=== PATIENT | female | born 1990 ===

== ENCOUNTER 2017-01-23 07:03 | Inpatient (IN) | payer MEDICAID ==
[2017-01-23] MEDS ORDERED: Sodium Chloride 0.9% 10 ML Syringe FLUSH PRN (07:15)
[2017-01-23] MEDS ORDERED: Acetaminophen 325 MG Tab PO PRN ×2 (07:15→17:42)
[2017-01-23] MEDS ORDERED: Nalbuphine 20 MG/1 ML Amp IVPUSH PRN (07:18)
[2017-01-23] MEDS ORDERED: Misoprostol 25 MCG (1/4 of 100 MCG) Tab ONE (07:21)
[2017-01-23] MEDS: Misoprostol 25 MCG (1/4 of 100 MCG) Tab VAG SCH ×3 (07:25→17:07)
--- NOTE | 2017-01-23 07:30 | PCM.LDHP ---
L&D History of Present Illness - General Date of Service: 01/23/17 Admit Problem/Dx: Admission Diagnosis/Problem Admission Diagnosis/Problem Source of Information: Patient History Limitations: Reports: No Limitations - History of Present Illness Introduction:: 26-year-old 002 [address] 01/21/17 at estimated gestational age of 40 weeks and 2 days admitted for induction. GBS negative. Patient is Rh-. 2 previous deliveries estimated weight 7 lbs. 15 oz. Blood type A negative antibody screen negative patient did receive RhoGAM at 28 weeks. Initial hemoglobin and hematocrit 13.2/40.1 platelets 252,000 Pap smear -07/14/16. Rubella titer indicates immunity, VDRL nonreactive, urine culture no growth after 2 days. Hepatitis B surface antigen and HIV negative. Chlamydia and GC negative on . On 10/30/16 hemoglobin hematocrit 12.1/35.9 platelets 222,000 antibody screen negative RhoGam given on 10/30/16. Strep negative on 12/22/16. Patient admitted for induction of labor. Cytotec 25 g placed at the cervical os at 0725 hrs. Improves with: Reports: None Worsens with: Reports: None Associated Symptoms: Reports: N - Related Data Allergies/Adverse Reactions: Allergies Allergy/AdvReac Type Severity Reaction Status Date / Time Penicillins Allergy Severe Hives Verified 01/23/17 07:28 Home Medications: Home Meds Vits #93/Iron Fum/FA [ Formula Tablet] 01/23/17 [History] Past Medical History - Past Health History Medical/Surgical History: Denies Medical/Surgical History : 3 Para: 2 (2001) Other OB/BYN History: ovarian cysts Psychiatric History: Reports: Depression - Past Surgical History HEENT Surgical History: Reports: Oral Surgery Social & Family History - Family History Family Medical History: Noncontributory - Tobacco Use Smoking Status *Q: Current Every Day Smoker (4 yrs of 1/2 ppd. pt counseled on need to quit for both her own health and that of her children) Years of Tobacco use: 3 Packs/Tins Daily: 0.5 Used Tobacco, but Quit: No Second Hand Smoke Exposure: Yes - Alcohol Use Days Per Week of Alcohol Use: 0 - Recreational Drug Use Recreational Drug Use: No H&P Review of Systems - Review of Systems: Review Of Systems: See Below General: Reports: No Symptoms HEENT: Reports: No Symptoms Pulmonary: Reports: No Symptoms Cardiovascular: Reports: No Symptoms Gastrointestinal: Reports: No Symptoms Genitourinary: Reports: No Symptoms Musculoskeletal: Reports: No Symptoms Skin: Reports: No Symptoms Psychiatric: Reports: No Symptoms Neurological: Reports: No Symptoms Hematologic/Lymphatic: Reports: No Symptoms Immunologic: Reports: No Symptoms L&D Exam - Exam Exam: See Below - Vital Signs Vital Signs: BP 115/67 Pulse 85 - OB Specific Fundal Height In cm: 39 Movement: Active Heart Tones: Present Heart Tones per Min: 135 Heart Rate (FHR) Variability: Moderate (6-25 bmp) Presentation: Vertex - Crockett Score Crockett Score Cervix Position: Posterior Crockett Score Consistency: Soft Crockett Score Effacement: 31-50% Crockett Score Dilation: 1-2 cm Crockett Score Infant's Station: -3 Crockett Score Total: 4 - Exam General: Alert, Oriented HEENT: Conjunctiva Clear, Mucosa Moist & Encampment, PERRLA Neck: Supple, Trachea Midline Lungs: Clear to Auscultation, Normal Respiratory Effort Cardiovascular: Regular Rate, Regular Rhythm GI/Abdominal Exam: Normal Bowel Sounds, Soft, Non-Tender, No Organomegaly, No Distention, No Abnormal Bruit, No Mass, Pelvis Stable Genitourinary: Normal external exam, Normal bimanual exam, Normal speculum exam Extremities: Normal Inspection, Normal Range of Motion, Non-Tender, No Pedal Edema, Normal Capillary Refill Skin: Warm, Dry, Intact Neurological: Reflexes Equal Bilateral Psychiatric: Alert, Normal Affect, Normal Mood - Patient Data Result Diagrams: 01/23/17 07:30 - Problem List (1) 40 weeks gestation of SNOMED Code(s): 14147191 ICD Code: Z3A.40 - 40 WEEKS GESTATION OF Status: Acute Current Visit: Yes (2) Rh negative status during in third trimester, antepartum SNOMED Code(s): 480016197 ICD Code: O09.893 - SUPERVISION OF OTHER HIGH RISK PREGNANCIES, THIRD TRIMESTER Status: Acute Current Visit: Yes Problem List Initiated/Reviewed/Updated: No Orders Last 24hrs: Active Orders 24 hr Category Date Time Status Communication Order [RC] ASDIRECTED Care 01/23/17 07:15 Ordered Communication Order [RC] ASDIRECTED Care 01/23/17 07:15 Ordered Communication Order [RC] ASDIRECTED Care 01/23/17 07:15 Ordered Monitoring [RC] INTERMITTENT Care 01/23/17 07:15 Ordered Notify Provider [RC] ASDIRECTED Care 01/23/17 07:15 Ordered Peripheral IV Care [RC] . DIRECTED Care 01/23/17 07:15 Ordered Vaginal Exam [RC] ASDIRECTED Care 01/23/17 07:15 Ordered Vital Signs [RC] ASDIRECTED Care 01/23/17 07:15 Ordered Clear Liquid Diet [DIET] Diet 01/23/17 Breakfast Ordered CBC WITH AUTO DIFF [HEME] Stat Lab 01/23/17 07:18 Ordered TYPE AND SCREEN [BBK] Stat Lab 01/23/17 07:19 Ordered Acetaminophen [Tylenol] Med 01/23/17 07:15 Ordered 650 mg PO Q4H PRN Lactated Ringers [Ringers, Lactated] 1,000 ml Med 01/23/17 07:15 Ordered IV ASDIRECTED Misoprostol [Cytotec] Med 01/23/17 07:15 Ordered 25 mcg VAG Q3H Nalbuphine [Nubain] Med 01/23/17 07:18 Ordered 10 mg IVPUSH Q3H PRN Oxytocin [Pitocin] 20 unit Med 01/23/17 07:30 Ordered Lactated Ringers [Ringers, Lactated] 1,000 ml IV TITRATE Sodium Chloride 0.9% [Saline Flush] Med 01/23/17 07:15 Ordered 10 ml FLUSH ASDIRECTED PRN Medication Administration Instruction [OM.PC] Oth 01/23/17 07:30 Ordered ASDIRECTED Peripheral IV Insertion Adult [OM.PC] Routine Oth 01/23/17 07:15 Ordered Medication Orders Acetaminophen (Tylenol) 650 mg PO Q4H PRN PRN Reason: Fever greater than 100.4 Lactated Ringer's (Ringers, Lactated) 1,000 mls @ 40 mls/hr IV ASDIRECTED MALINDA Oxytocin 20 unit/ Lactated (Ringer's) 1,002 mls @ 6.01 mls/hr IV TITRATE MALINDA; 2 MUNITS/MIN PRN Reason: Protocol Misoprostol (Cytotec) 25 mcg VAG Q3H MALINDA Stop: 01/23/17 13:16 Nalbuphine HCl (Nubain) 10 mg IVPUSH Q3H PRN PRN Reason: Pain Sodium Chloride (Saline Flush) 10 ml FLUSH ASDIRECTED PRN PRN Reason: Keep Vein Open Assessment/Plan Comment:: Admit for induction
[2017-01-23] MEDS ORDERED: Bupivacaine 0.25% 10 ML SDV ONE ×2 (09:00→22:22)
[2017-01-23] MEDS: Lactated Ringers 1,000 ML IV SCH ×3 (09:45→12:47)
--- NOTE | 2017-01-23 09:53 | PCM.SN ---
- Free Text/Narrative Note: Cervix is 2 cm dilated 50% effaced soft mid position Vertex -1 amniotomy performed clear fluid patient had had some decelerations appeared be early in nature consistent with the head engaging into the pelvis. No cord palpable before or after amniotomy.
[2017-01-23] MEDS ORDERED: fentaNYL 100 MCG/2 ML SDV EPIDUR PRN (11:03)
[2017-01-23] MEDS ORDERED: diphenhydrAMINE 50 MG/ML SDV IVPUSH PRN (11:03)
[2017-01-23] MEDS ORDERED: ePHEDrine 50 MG/ML SDV IVPUSH PRN (11:03)
[2017-01-23] MEDS ORDERED: Bupivacaine/fentaNYL/NS 100 ML Bag EPIDUR SCH (11:15)
--- NOTE | 2017-01-23 11:31 | PCM.PREANE ---
Preanesthetic Assessment - Anesthesia/Transfusion/Family Hx Anesthesia History: Prior Anesthesia Without Reaction Family History of Anesthesia Reaction: No Transfusion History: No Prior Transfusion(s) - Review of Systems General: No Symptoms Pulmonary: No Symptoms Cardiovascular: No Symptoms Gastrointestinal: No Symptoms Neurological: No Symptoms Other: Reports: None - Physical Assessment O2 Sat by Pulse Oximetry: 99 Respiratory Rate: 16 Vital Signs: Last Vital Signs Temp 36.4 C 01/23/17 07:15 Pulse 97 01/23/17 07:15 Resp 16 01/23/17 07:15 BP 115/67 01/23/17 07:15 Pulse Ox 99 01/23/17 07:15 Height: 1.78 m Weight: 103.873 kg ASA Class: 2 Mental Status: Alert & Oriented x3 Airway Class: Mallampati = 1 Dentition: Reports: Normal Dentition Thyro-Mental Finger Breadths: 3 Mouth Opening Finger Breadths: 3 ROM/Head Extension: Full Lungs: Clear to Auscultation, Normal Respiratory Effort Cardiovascular: Regular Rate, Regular Rhythm, No Murmurs - Lab Values: Laboratory Last Values WBC 9.79 K/mm3 (3.98-10.04) 01/23/17 07:30 RBC 3.97 M/mm3 (3.98-5.22) L 01/23/17 07:30 Hgb 11.9 gm/L (11.2-15.7) 01/23/17 07:30 Hct 36.4 % (34.1-44.9) 01/23/17 07:30 MCV 91.7 fl (79.4-94.8) 01/23/17 07:30 MCH 30.0 pg (25.6-32.2) 01/23/17 07:30 MCHC 32.7 g/dl (32.2-35.5) 01/23/17 07:30 RDW Std Deviation 47.1 fL (36.4-46.3) H 01/23/17 07:30 Plt Count 226 K/mm3 (182-369) 01/23/17 07:30 MPV 10.8 fl (9.4-12.3) 01/23/17 07:30 Neut % (Auto) 69.5 % (34.0-71.1) 01/23/17 07:30 Lymph % (Auto) 20.9 % (19.3-51.7) 01/23/17 07:30 Terry % (Auto) 7.8 % (4.7-12.5) 01/23/17 07:30 Eos % (Auto) 1.6 (0.7-5.8) 01/23/17 07:30 Baso % (Auto) 0.1 % (0.1-1.2) 01/23/17 07:30 Neut # (Auto) 6.80 K/mm3 (1.56-6.13) H 01/23/17 07:30 Lymph # (Auto) 2.05 K/mm3 (1.18-3.74) 01/23/17 07:30 Terry # (Auto) 0.76 K/mm3 (0.24-0.36) H 01/23/17 07:30 Eos # (Auto) 0.16 K/mm3 (0.04-0.36) 01/23/17 07:30 Baso # (Auto) 0.01 K/mm3 (0.01-0.08) 01/23/17 07:30 Blood Type A NEGATIVE 01/23/17 07:30 Gel Antibody Screen Positive 01/23/17 07:30 - Allergies Allergies/Adverse Reactions: Allergies Allergy/AdvReac Type Severity Reaction Status Date / Time Penicillins Allergy Severe Hives Verified 01/23/17 07:28 - Anesthesia Plan Pre-Op Medication Ordered: None - Acknowledgements Anesthesia Type Planned: Epidural Pt an Appropriate Candidate for the Planned Anesthesia: Yes Alternatives and Risks of Anesthesia Discussed w Pt/Guardian: Yes Pt/Guardian Understands and Agrees with Anesthesia Plan: Yes PreAnesthesia Questionnaire - Past Health History Medical/Surgical History: Denies Medical/Surgical History Gastrointestinal History: Reports: GERD [employer]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 pt counseled on need to quit for both her own health and that of her children) Tobacco Use Within Last Twelve Months: Cigarettes Second Hand Smoke Exposure: Yes Days Per Week of Alcohol Use: 0 Recreational Drug Use History: No - HOME MEDS Home Medications: Home Meds Vits #93/Iron Fum/FA [ Formula Tablet] 01/23/17 [History] - CURRENT (IN HOUSE) MEDS Current Meds: Current Medications Acetaminophen (Tylenol) 650 mg PO Q4H PRN PRN Reason: Fever greater than 100.4 Diphenhydramine HCl (Benadryl) 25 mg IVPUSH Q6H PRN PRN Reason: Itching Ephedrine Sulfate (Ephedrine Sulfate) 5 mg IVPUSH ASDIRECTED PRN PRN Reason: HYPOTENTSION Fentanyl (Sublimaze) 100 mcg EPIDUR Q3H PRN PRN Reason: PAIN Last Admin: 01/23/17 11:25 Dose: 100 mcg Fentanyl/Bupivacaine HCl (Fentanyl/Bupivacaine/Ns 2 Mcg-0.125% 100 Ml) 100 ml EPIDUR ASDIRECTED MALINDA Lactated Ringer's (Ringers, Lactated) 1,000 mls @ 40 mls/hr IV ASDIRECTED MALINDA Last Admin: 01/23/17 11:15 Dose: 40 mls/hr Oxytocin 20 unit/ Lactated (Ringer's) 1,002 mls @ 6.01 mls/hr IV TITRATE MALINDA; 2 MUNITS/MIN PRN Reason: Protocol Misoprostol (Cytotec) 25 mcg VAG Q3H MALINDA Stop: 01/23/17 13:16 Last Admin: 01/23/17 11:16 Dose: Not Given Nalbuphine HCl (Nubain) 10 mg IVPUSH Q3H PRN PRN Reason: Pain Sodium Chloride (Saline Flush) 10 ml FLUSH ASDIRECTED PRN PRN Reason: Keep Vein Open Discontinued Medications Misoprostol (Cytotec) Confirm Administered Dose 25 mcg .ROUTE .STK-MED ONE Stop: 01/23/17 07:22 Last Admin: 01/23/17 07:36 Dose: Not Given
--- NOTE | 2017-01-23 14:07 | PCM.SN ---
- Free Text/Narrative Note: Cervix is 4 cm dilated the head was minus onetime amniotomy now -2 to -3 still mid position soft no cord is palpated uterine activity catheter and heart tone electrode placed patient. Now meconium-stained amnionic fluid as opposed to clear fluid at time of rupture. Having contractions every 2 minutes. Trying to determine if adequate enough for cervical dilatation or if augmentation needs to be performed.
--- NOTE | 2017-01-23 14:23 | PCM.SN ---
- Free Text/Narrative Note: Discussed findings with patient and will obtain consent for K Seim is needed at present time will proceed with attempted vaginal delivery. Patient had last delivery did have meconium-stained amnionic fluid and lymph cord.
--- NOTE | 2017-01-23 15:19 | PCM.SN ---
- Free Text/Narrative Note: Cervix is now 5 cm dilated, 70% effaced, mid position, soft, vertex (suspect OP) , meconium staining persist, -2 station. heart tones category 1 with early decelerations consistent with head compression. Contractions every 2-3 minutes and MVUs 200s. Adequate contractions with spontaneous labor no indication for oxytocin.
[2017-01-23] MEDS ORDERED: Oxytocin/Lactated Ringers 20 UNIT/1,000 ML BAG IV ONE (16:01)
[2017-01-23] MEDS ORDERED: Lidocaine 1% 50 ML MDV ONE (16:53)
[2017-01-23] MEDS ORDERED: Lidocaine 1% 10 ML MDV INJECT ONE (17:07)
--- NOTE | 2017-01-23 17:09 | PCM.DEL ---
L & D Note - General Info Date of Service: 01/23/17 Mother's Due Date: 01/21/17 - Delivery Note Labor: Augmented by ARM Cervical Ripening Method: Misoprostil Delivery Outcome: Livebirth (Female liveborn 1651 hrs. Thursday01/23/17 SAMI Apgars 8/9 nuchal cord times one meconium-stained amnionic fluid weight 30/1/80 grams/7 pounds 0.2 ounces) Delivery Method: Spontaneous Vaginal Delivery-Single Infant Delivery Mode: Spontaneous Presentation: Left Occiput Anterior (SAMI) Nuchal Cord: Present Prep: Povidone-Iodine (Betadine Anesthesia Type: Epidural Anesthetic: Lidocaine (Xylocaine) 1% Plain (4 mL) Local Anesthetic Volume: 4cc Amniotic Fluid Description: Meconium Stained Episiotomy Type: None Laceration: 1st Degree (Midline) Suture type: Other (Monocryl) Suture size: 3-0 Placenta: Intact, Spontaneous (1652 hrs. intact central cord insertion) Cord: 3 Vessels Estimated Blood Loss: 250 Resuscitation Needed: No : Suctioned, Bulb Syringe, Stimulated, Warmed, [place] Used, Warmer Used Provider: Alejandro Mena Score 1 min: 8 Score 5 min: 9 - Patient Data Vitals - Most Recent: Last Vital Signs Temp 97.6 F 01/23/17 07:15 Pulse 97 01/23/17 07:15 Resp 16 01/23/17 11:31 BP 115/67 01/23/17 07:15 Pulse Ox 99 01/23/17 11:31 Weight - Most Recent: 229 lb I&O - Last 24 Hours: Intake & Output 01/23/17 01/23/17 01/23/17 06:59 14:59 22:59 Intake Total 1999 Balance 1999 Lab Results Last 24 Hours: Laboratory Results - last 24 hr 01/23/17 01/23/17 Range/Units 07:30 07:30 WBC 9.79 (3.98-10.04) K/mm3 RBC 3.97 L (3.98-5.22) M/mm3 Hgb 11.9 (11.2-15.7) gm/L Hct 36.4 (34.1-44.9) % MCV 91.7 (79.4-94.8) fl MCH 30.0 (25.6-32.2) pg MCHC 32.7 (32.2-35.5) g/dl RDW Std Deviation 47.1 H (36.4-46.3) fL Plt Count 226 (182-369) K/mm3 MPV 10.8 (9.4-12.3) fl Neut % (Auto) 69.5 (34.0-71.1) % Lymph % (Auto) 20.9 (19.3-51.7) % [place] % (Auto) 7.8 (4.7-12.5) % Eos % (Auto) 1.6 (0.7-5.8) Baso % (Auto) 0.1 (0.1-1.2) % Neut # (Auto) 6.80 H (1.56-6.13) K/mm3 Lymph # (Auto) 2.05 (1.18-3.74) K/mm3 [place] # (Auto) 0.76 H (0.24-0.36) K/mm3 Eos # (Auto) 0.16 (0.04-0.36) K/mm3 Baso # (Auto) 0.01 (0.01-0.08) K/mm3 Blood Type A NEGATIVE Gel Antibody Screen Positive Med Orders - Current: Current Medications Acetaminophen (Tylenol) 650 mg PO Q4H PRN PRN Reason: Fever greater than 100.4 Diphenhydramine HCl (Benadryl) 25 mg IVPUSH Q6H PRN PRN Reason: Itching Ephedrine Sulfate (Ephedrine Sulfate) 5 mg IVPUSH ASDIRECTED PRN PRN Reason: HYPOTENTSION Fentanyl (Sublimaze) 100 mcg EPIDUR Q3H PRN PRN Reason: PAIN Last Admin: 01/23/17 11:25 Dose: 100 mcg Fentanyl/Bupivacaine HCl (Fentanyl/Bupivacaine/Ns 2 Mcg-0.125% 100 Ml) 100 ml EPIDUR ASDIRECTED MALINDA Lactated Ringer's (Ringers, Lactated) 1,000 mls @ 40 mls/hr IV ASDIRECTED MALINDA Last Admin: 01/23/17 12:47 Dose: 40 mls/hr Oxytocin 20 unit/ Lactated (Ringer's) 1,002 mls @ 6.01 mls/hr IV TITRATE MALINDA; 2 MUNITS/MIN PRN Reason: Protocol Nalbuphine HCl (Nubain) 10 mg IVPUSH Q3H PRN PRN Reason: Pain Sodium Chloride (Saline Flush) 10 ml FLUSH ASDIRECTED PRN PRN Reason: Keep Vein Open Discontinued Medications Oxytocin/Lactated Ringer's (Pitocin In Lr 20 Units/1,000 Ml) Confirm Administered Dose 20 unit in 1,000 mls @ as directed IV .STK-MED ONE Stop: 01/23/17 16:02 Lidocaine HCl (Xylocaine 1%) Confirm Administered Dose 50 ml .ROUTE .STK-MED ONE Stop: 01/23/17 16:54 Misoprostol (Cytotec) 25 mcg VAG Q3H MALINDA Stop: 01/23/17 13:16 Last Admin: 01/23/17 11:16 Dose: Not Given Misoprostol (Cytotec) Confirm Administered Dose 25 mcg .ROUTE .STK-MED ONE Stop: 01/23/17 07:22 Last Admin: 01/23/17 07:36 Dose: Not Given - Problem List & Annotations (1) 40 weeks gestation of SNOMED Code(s): 55272967 Code(s): Z3A.40 - 40 WEEKS GESTATION OF Status: Acute Current Visit: Yes (2) Rh negative status during in third trimester, antepartum SNOMED Code(s): 289631568 Code(s): O09.893 - SUPERVISION OF OTHER HIGH RISK PREGNANCIES, THIRD TRIMESTER Status: Acute Current Visit: Yes (3) First degree perineal laceration, delivered, current hospitalization SNOMED Code(s): 145059762 Code(s): O70.0 - FIRST DEGREE PERINEAL LACERATION DURING DELIVERY Status: Acute Current Visit: Yes (4) First degree perineal laceration during delivery, delivered SNOMED Code(s): 784509751 Code(s): O70.0 - FIRST DEGREE PERINEAL LACERATION DURING DELIVERY Status: Acute Current Visit: No (5) Meconium in amniotic fluid affecting management of mother, delivered SNOMED Code(s): 57310641, 801254655 Code(s): O77.0 - LABOR AND DELIVERY COMPLICATED BY MECONIUM IN AMNIOTIC FLUID Status: Acute Current Visit: No (6) Nuchal cord with compression, delivered, current hospitalization SNOMED Code(s): 667395851 Code(s): O69.1XX0 - LABOR AND DELIVERY COMP BY CORD AROUND NECK, W COMPRSN, UNSP Status: Acute Current Visit: No - Problem List Review Problem List Initiated/Reviewed/Updated: No - My Orders Last 24 Hours: My Active Orders 01/23/17 07:15 Communication Order [RC] ASDIRECTED Communication Order [RC] ASDIRECTED Communication Order [RC] ASDIRECTED Monitoring [RC] INTERMITTENT Notify Provider [RC] ASDIRECTED Peripheral IV Care [RC] . DIRECTED Vaginal Exam [RC] ASDIRECTED Vital Signs [RC] ASDIRECTED Acetaminophen [Tylenol] 650 mg PO Q4H PRN Lactated Ringers [Ringers, Lactated] 1,000 ml IV ASDIRECTED Sodium Chloride 0.9% [Saline Flush] 10 ml FLUSH ASDIRECTED PRN Peripheral IV Insertion Adult [OM.PC] Routine 01/23/17 07:18 Nalbuphine [Nubain] 10 mg IVPUSH Q3H PRN 01/23/17 07:30 ANTIBODY IDENTIFICATION [BBK] Stat TYPE AND SCREEN [BBK] Stat Oxytocin [Pitocin] 20 unit Lactated Ringers [Ringers, Lactated] 1,000 ml IV TITRATE Medication Administration Instruction [OM.PC] ASDIRECTED 01/23/17 07:58 Admission Status [Patient Status] [ADT] Routine 01/23/17 12:25 PCEA Epidural [RC] ASDIRECTED 01/23/17 12:26 Urinary Catheter Assessment [RC] ASDIRECTED 01/23/17 12:30 Insert Earl Catheter [Insert Urinary Catheter] [OM.PC] Q24H - Plan Plan:: Admit for induction
[2017-01-23] MEDS ORDERED: Docusate Sodium 100 MG Cap PO PRN (17:42)
[2017-01-23] MEDS ORDERED: Benzocaine/Menthol 20%-0.5% Spray 56 GM Canister TOP PRN (17:42)
[2017-01-23] MEDS ORDERED: Lanolin 100% Cream 7 GM Tube TOP PRN (17:42)
[2017-01-23] MEDS ORDERED: Witch Hazel Medicated Pads 100/Jar TOP PRN (17:42)
[2017-01-23] MEDS: Ibuprofen 600 MG Tab PO PRN (19:37)
[2017-01-24] MEDS: Ibuprofen 600 MG Tab PO PRN ×2 (01:52→11:42)
--- NOTE | 2017-01-25 10:29 | PCM.DCSUM1 ---
Discharge Summary - Hospital Course Brief History: Admitted for induction. Unremarkable induction, delivery and course. - Discharge Data Discharge Date: 01/25/17 Discharge Disposition: Home, Self-Care 01 Condition: Good - Patient Summary/Data Hospital Course: Delivery on a Thursday. Unremarkable course. Discharged PPD2 for baby reasons. Some mild depression. Desires meds as has been on before. - Patient Instructions Diet: Usual Diet as Tolerated Activity: No Strenuous Activities Driving: May Drive Today Showering/Bathing: May Shower Wound/Incision Care: Keep Operative Site/Wound Site Clean and Dry Notify Provider of: Fever, Increased Pain, Swelling and Redness, Drainage, Nausea and/or Vomiting - Discharge Plan Home Medications: Home Meds Vits #93/Iron Fum/FA [ Formula Tablet] 01/23/17 [History] - Discharge Summary/Plan Comment DC Time >30 min.: No - General Info Date of Service: 01/25/17 Functional Status: Reports: Pain Controlled - Review of Systems General: Reports: No Symptoms HEENT: Reports: No Symptoms Pulmonary: Reports: No Symptoms Cardiovascular: Reports: No Symptoms Gastrointestinal: Reports: No Symptoms Genitourinary: Reports: No Symptoms Musculoskeletal: Reports: No Symptoms Skin: Reports: No Symptoms Neurological: Reports: No Symptoms Psychiatric: Reports: No Symptoms - Patient Data Vitals - Most Recent: Last Vital Signs Temp 36.6 C 01/25/17 04:28 Pulse 86 01/25/17 04:28 Resp 14 01/25/17 04:28 BP 113/58 L 01/25/17 04:28 Pulse Ox 96 01/25/17 04:28 Weight - Most Recent: 103.873 kg Med Orders - Current: Current Medications Acetaminophen (Tylenol) 650 mg PO Q4H PRN PRN Reason: mild pain or fever Benzocaine/Menthol (Dermoplast Pain Relief [place]) 0 gm TOP ASDIRECTED PRN PRN Reason: Perineal Comfort Measure Docusate Sodium (Colace) 100 mg PO BID PRN PRN Reason: Constipation Emollient Ointment (Lansinoh Hpa) 0 gm TOP ASDIRECTED PRN PRN Reason: Sore Nipples Last Admin: 01/24/17 18:02 Dose: 1 applic Oxytocin 20 unit/ Lactated (Ringer's) 1,002 mls @ 500 mls/hr IV TITRATE MALINDA PRN Reason: Protocol Last Admin: 01/23/17 16:51 Dose: 500 ml/hr, 500 mls/hr Ibuprofen (Motrin) 600 mg PO Q4H PRN PRN Reason: Mild pain or fever Last Admin: 01/24/17 11:42 Dose: 600 mg Witch Narcisa (Tucks) 1 pad TOP ASDIRECTED PRN PRN Reason: Hemorrhoid pain Discontinued Medications Acetaminophen (Tylenol) 650 mg PO Q4H PRN PRN Reason: Fever greater than 100.4 Bupivacaine HCl (Sensorcaine-Mpf 0.25%) 10 ml .ROUTE .STK-MED ONE Stop: 01/23/17 09:01 Diphenhydramine HCl (Benadryl) 25 mg IVPUSH Q6H PRN PRN Reason: Itching Ephedrine Sulfate (Ephedrine Sulfate) 5 mg IVPUSH ASDIRECTED PRN PRN Reason: HYPOTENTSION Fentanyl (Sublimaze) 100 mcg EPIDUR Q3H PRN PRN Reason: PAIN Last Admin: 01/23/17 11:25 Dose: 100 mcg Fentanyl/Bupivacaine HCl (Fentanyl/Bupivacaine/Ns 2 Mcg-0.125% 100 Ml) 100 ml EPIDUR ASDIRECTED MALINDA Lactated Ringer's (Ringers, Lactated) 1,000 mls @ 40 mls/hr IV ASDIRECTED MALINDA Last Admin: 01/23/17 12:47 Dose: 40 mls/hr Oxytocin 20 unit/ Lactated (Ringer's) 1,002 mls @ 6.01 mls/hr IV TITRATE MALINDA; 2 MUNITS/MIN PRN Reason: Protocol Oxytocin/Lactated Ringer's (Pitocin In Lr 20 Units/1,000 Ml) Confirm Administered Dose 20 unit in 1,000 mls @ as directed IV .STK-MED ONE Stop: 01/23/17 16:02 Last Admin: 01/23/17 17:07 Dose: Not Given Lidocaine HCl (Xylocaine 1%) Confirm Administered Dose 50 ml .ROUTE .STK-MED ONE Stop: 01/23/17 16:54 Last Admin: 01/23/17 17:10 Dose: Not Given Lidocaine HCl (Xylocaine 1%) 50 ml INJECT ONETIME ONE Stop: 01/23/17 17:08 Last Admin: 11/17/17 17:18 Dose: 50 ml Misoprostol (Cytotec) 25 mcg VAG Q3H MALINDA Stop: 01/23/17 13:16 Last Admin: 01/23/17 17:07 Dose: Not Given Misoprostol (Cytotec) Confirm Administered Dose 25 mcg .ROUTE .STK-MED ONE Stop: 01/23/17 07:22 Last Admin: 01/23/17 07:36 Dose: Not Given Nalbuphine HCl (Nubain) 10 mg IVPUSH Q3H PRN PRN Reason: Pain Sodium Chloride (Saline Flush) 10 ml FLUSH ASDIRECTED PRN PRN Reason: Keep Vein Open - Exam General: Reports: Alert, Oriented HEENT: Reports: Pupils Equal, Pupils Reactive, EOMI, Mucous Membr. Moist/[place] Neck: Reports: Supple Lungs: Reports: Clear to Auscultation, Normal Respiratory Effort Cardiovascular: Reports: Regular Rate, Regular Rhythm GI/Abdominal Exam: Normal Bowel Sounds, Soft, Non-Tender, No Organomegaly, No Distention, No Abnormal Bruit, No Mass, Pelvis Stable Back Exam: Reports: Normal Inspection, Full Range of Motion Extremities: Normal Inspection, Normal Range of Motion, Non-Tender, No Pedal Edema, Normal Capillary Refill Skin: Reports: Warm, Dry, Intact Wound/Incisions: Reports: Healing Well Neurological: Reports: No New Focal Deficit Psy/Mental Status: Reports: Alert, Normal Affect, Normal Mood *Q Meaningful Use (DIS) - VTE *Q VTE Criteria *Q: - Stroke *Q Stroke Criteria *Q: - AMI *Q AMI Criteria *Q:
[2017-01-25 10:39] VITALS: BP 123/82
== END 2017-01-25 12:14 | disposition home or self-care (01) | DRG 775 ==
LOC: JD.OBCHECK 07:03 → JD.OB 07:09 → JD.OBCHECK 07:58 → JD.OB 07:58 → OBSVTOIN 16:51
PROVIDERS: ADMIT Obstetrics & Gynecology; ATTEND Obstetrics & Gynecology
PROC: 10E0XZZ Delivery of Products of Conception, External Approach (ICD-10-PCS; principal; 2017-01-23)
PROC: 3E0P7VZ Introduction of Hormone into Female Reproductive, Via Natural or Artificial Opening (ICD-10-PCS; 2017-01-23)
PROC: 10907ZC Drainage of Amniotic Fluid, Therapeutic from Products of Conception, Via Natural or Artificial Opening (ICD-10-PCS; 2017-01-23)
PROC: 00HU33Z Insertion of Infusion Device into Spinal Canal, Percutaneous Approach (ICD-10-PCS; 2017-01-23)
PROC: 3E0R3BZ Introduction of Anesthetic Agent into Spinal Canal, Percutaneous Approach (ICD-10-PCS; 2017-01-23)
DX: O99.334 Smoking (tobacco) complicating childbirth (principal); Z3A.40 40 weeks gestation of pregnancy; Z37.0 Single live birth; O77.0 Labor and delivery complicated by meconium in amniotic fluid; O69.81X0 Labor and delivery complicated by cord around neck, without compression, not applicable or unspecified; O70.0 First degree perineal laceration during delivery; Z88.0 Allergy status to penicillin
CPT/HCPCS: 36415; 51702; 59300; 59409; 85025; 86850; 86870; 86900; 86901; A9270-GY; J2590; J3010; J7120

== ENCOUNTER 2022-11-08 01:42 | Emergency (ER) | payer BC, MEDICAID ==
[2022-11-08] MEDS ORDERED: Acetaminophen/HYDROcodone 325-5 MG Tab PO ONE (02:22)
[2022-11-08 03:37] VITALS: BP 137/84; PULSE 74
== END 2022-11-08 03:30 | disposition home or self-care (01) ==
LOC: JD.ED 01:42
DX: S60.512A Abrasion of left hand, initial encounter (principal); F17.290 Nicotine dependence, other tobacco product, uncomplicated; W05.2XXA Fall from non-moving motorized mobility scooter, initial encounter
CPT/HCPCS: 73100; 99283; A9270